=== PATIENT | female | born 1970 | race Caucasian/White ===

== ENCOUNTER 2021-08-25 01:20 | Emergency (ER) | payer OTHER ==
[2021-08-25] MEDS ORDERED: morphine SULFATE IMMEDIATE RELEASE 30 MG TAB PO ONE (01:23)
[2021-08-25] MEDS ORDERED: IBUPROFEN 600 MG TABLET (FP) PO ONE (01:26)
[2021-08-25] MEDS ORDERED: LACTATED RINGERS SOLUTION 1000 ML INFUS.BAG IV ONE (01:29)
[2021-08-25] MEDS ORDERED: SODIUM CHLORIDE 0.9% 500 ML INFUS.BAG IV ONE (01:30)
[2021-08-25 01:38] VITALS: BMI 33.9
[2021-08-25] MEDS ORDERED: KETOROLAC TROMETHAMINE 30 MG/1 ML VIAL IVPUSH ONE (01:47)
[2021-08-25] MEDS ORDERED: KETOROLAC TROMETHAMINE 30 MG/1 ML VIAL ONE (01:47)
[2021-08-25] MEDS ORDERED: ACETAMINOPHEN INJECTION 100 ML IVPB ONE (02:32)
[2021-08-25] MEDS ORDERED: diazePAM 5 MG TABLET PO ONE (02:32)
[2021-08-25] MEDS ORDERED: ACETAMINOPHEN 1000 MG/100 ML VIAL IVPB ONE (02:32)
[2021-08-25] MEDS ORDERED: diazePAM 5 MG TABLET ONE (02:33)
[2021-08-25] MEDS ORDERED: LACTULOSE 20 GM/30 ML UDC (FOR ORAL USE ONLY) PO ONE (02:37)
[2021-08-25 02:48] VITALS: BP 141/75; PULSE 65
[2021-08-25 02:53] LABS: ALBUMIN 3.9 g/dl (3.4-5.0); BLOOD UREA NITROGEN 15.2 mg/dL (7-18)
[2021-08-25] MEDS ORDERED: LIDOCAINE 5% TOPICAL PATCH TP ONE (02:55)
[2021-08-25 02:56] LABS: CREATININE 0.8 mg/dL (0.55-1.3)
[2021-08-25 02:57] LABS: BILIRUBIN,TOTAL 0.3 mg/dL (0.2-1)
[2021-08-25 02:58] LABS: TOT PROT 7.5 g/dl (6.4-8.2)
[2021-08-25] MEDS ORDERED: LACTULOSE 20 GM/30 ML UDC (FOR ORAL USE ONLY) ONE (02:59)
[2021-08-25] MEDS ORDERED: LIDOCAINE 5% TOPICAL PATCH ONE (03:00)
[2021-08-25 03:07] LABS: EPI CELLS 4 /uL (0-25.1); HYALINE CASTS 0 /uL (0-3.1); PH,URINE 7.5 (5.0-8.0); URINE APPEARANCE CLEAR; URINE BACTERIA 20 /uL (0-1359); URINE BILIRUBIN NEGATIVE (NEGATIVE); URINE COLOR YELLOW; URINE GLUCOSE (UA) NEGATIVE (NEGATIVE); URINE KETONE NEGATIVE (NEGATIVE); URINE LEUK ESTERASE NEGATIVE (NEGATIVE); URINE NITRITE NEGATIVE (NEGATIVE); URINE PROTEIN TRACE (NEGATIVE); URINE RBC 21 /uL (0-23.9); URINE UROBILINOGEN 0.2 mg/dL (0.2-1.0); URINE WBC 17 /uL (0-25.8)
[2021-08-25 03:28] LABS: BASO % 0.8 % (0-2.0); HEMATOCRIT 39.5 % (32.4-45.2); HEMOGLOBIN 13.7 GM/dL (10.7-15.3); MCH 30.1 pg (25.7-33.7); MCHC 34.6 g/dl (32.0-36.0); MEAN CELL VOLUME 87.1 fl (80-96); MEAN PLT VOLUME 8.3 fl (7.5-11.1); MONO % 6.5 % (3.8-10.2); NEUT % 47.7 % (42.8-82.8); PLATELET COUNT 271 10^3/uL (134-434); RBC 4.54 M/mm3 (3.60-5.2); WHITE BLOOD COUNT 9.3 K/mm3 (4.0-10.0)
[2021-08-25] MEDS ORDERED: LIDOCAINE PATCH REMOVAL MC SCH (22:00)
== END 2021-08-25 03:39 | disposition home or self-care (01) ==
LOC: FER 01:20
PROC: 3E033GC Introduction of Other Therapeutic Substance into Peripheral Vein, Percutaneous Approach (ICD-10-PCS; principal; 2021-08-25)
DX: M54.50 Low back pain, unspecified (principal)
CPT/HCPCS: 36415; 74176-TC; 80053; 81003; 84703; 85025; 96374; 96375; 99285-25; J0131